=== PATIENT | female | born 1945 | race Caucasian/White ===

== ENCOUNTER 2021-04-10 07:29 | Day surgery (SDC) | payer OTHER ==
[~2021-04-10] VITALS: Ht 175.3 cm; Wt 113.8 kg
[2021-04-10] MEDS ORDERED: CENTRUM SILVER1 EAC2 PO (08:28)
[2021-04-10] MEDS ORDERED: ZESTRIL40 M2 PO (08:28)
[2021-04-10] MEDS ORDERED: THERA-D2000 UNIT PO (08:28)
[2021-04-10] MEDS ORDERED: CALCIUM CIT 311 EAC7 PO (08:29)
--- NOTE | 2021-04-10 09:36 | NUR ---
04/10/21 0936 Bushra Gupta 0.25 ML EPI ADDED TO 50 ML NORMAL SALINE PER ORDER TO MAKE EPI 1:200,000 FOR INJECTION AT OPSITE BY DR. FORRESTER. 5 MLS INJECTED.
--- NOTE | 2021-04-10 13:53 | NUR ---
04/10/21 1353 Mala Dorman PT EMESIS X1. NO MEDICATION NEEDED. NO FURTHER INCIDENTS.
== END 2021-04-10 14:34 | disposition home or self-care (01) ==
LOC: ORSCSDS 07:29
PROVIDERS: Otolaryngology
PROC: 0CT80ZZ Resection of Right Parotid Gland, Open Approach (ICD-10-PCS; principal; 2021-04-10 09:00)
DX: D11.0 Benign neoplasm of parotid gland (principal); I10 Essential (primary) hypertension; Z79.899 Other long term (current) drug therapy; E66.01 Morbid (severe) obesity due to excess calories; Z68.37 Body mass index [BMI] 37.0-37.9, adult
CPT/HCPCS: 88307; A9270; J0171; J0330; J2001; J2704; J3010; J7120

== ENCOUNTER 2022-11-19 11:39 | Emergency (ER) | payer OTHER ==
[~2022-11-19] VITALS: Ht 172.7 cm; Wt 113.4 kg
[~2022-11-19 11:39] MED LIST: CALCIUM CIT 311 EAC7 PO; CENTRUM SILVER1 EAC2 PO; THERA-D2000 UNIT PO; ZESTRIL40 M2 PO
[2022-11-19 14:00] VITALS: BP 191/75
== END 2022-11-19 14:47 | disposition home or self-care (01) ==
LOC: ER 11:39
DX: S01.01XA Laceration without foreign body of scalp, initial encounter (principal); W01.0XXA Fall on same level from slipping, tripping and stumbling without subsequent striking against object, initial encounter; Z23 Encounter for immunization
CPT/HCPCS: 12001; 90471; 90714; 90715; 99283-25